=== PATIENT | female | born 1990 | race African-American/Black ===

== ENCOUNTER 2024-09-27 19:40 | Emergency (ER) | payer SELFPAY ==
[~2024-09-27] VITALS: Ht 162.6 cm; Wt 116.1 kg
[~2024-09-27 19:40] MED LIST: AZITHROMYCIN250 MG PO; DIPHENHYDRAMINE25 M2 PO; LORATADINE-D 21 EAC1 PO; NASACORT16.9 ML
[2024-09-27 21:14] VITALS: PULSE 72; RESP 18; TEMP 99.2
[2024-09-27] MEDS ORDERED: DOXYCYCLINE HY100 MG PO (21:27)
[2024-09-27] MEDS ORDERED: IBUPROFEN200 MG PO (21:27)
[2024-09-27 21:37] VITALS: BP 135/69; PULSE 72; RESP 18; TEMP 99.2; O2SAT 100
== END 2024-09-27 21:37 | disposition home or self-care (01) ==
LOC: FSED 19:44
DX: S80.212A Abrasion, left knee, initial encounter (principal); W01.0XXA Fall on same level from slipping, tripping and stumbling without subsequent striking against object, initial encounter; Y93.01 Activity, walking, marching and hiking; Y92.89 Other specified places as the place of occurrence of the external cause
CPT/HCPCS: 99282

== ENCOUNTER 2025-02-12 17:18 | Emergency (ER) | payer SELFPAY ==
[~2025-02-12] VITALS: Ht 162.6 cm; Wt 116.1 kg
[~2025-02-12 17:18] MED LIST changes: +DOXYCYCLINE HY100 MG PO; +IBUPROFEN200 MG PO
[2025-02-12 17:27] VITALS: PULSE 84; RESP 20; TEMP 98.1
[2025-02-12] MEDS ORDERED: TYLENOL325 MG PO (17:50)
[2025-02-12] MEDS ORDERED: TIZANIDINE HCL4 MG PO (17:50)
[2025-02-12] MEDS ORDERED: IBUPROFEN600 MG PO (17:50)
[2025-02-12] MEDS ORDERED: IBUPROFEN 200 MG TAB PO ONE (18:00)
[2025-02-12] MEDS ORDERED: ASPIRIN 325 MG TAB PO ONE (18:00)
[2025-02-12] MEDS: IBUPROFEN 600 MG TAB PO STA (18:27)
[2025-02-12] MEDS: ACETAMINOPHEN 325 MG TAB PO ONE (18:27)
[2025-02-12 18:56] VITALS: BP 134/79; PULSE 74; RESP 18; O2SAT 99
== END 2025-02-12 18:57 | disposition home or self-care (01) ==
LOC: FSED 17:23
DX: M54.50 Low back pain, unspecified (principal); M62.830 Muscle spasm of back; X50.0XXA Overexertion from strenuous movement or load, initial encounter
CPT/HCPCS: 99282

== ENCOUNTER 2025-07-18 09:53 | Emergency (ER) | payer SELFPAY ==
[~2025-07-18] VITALS: Ht 165.1 cm; Wt 11.1 kg
[~2025-07-18 09:53] MED LIST changes: +IBUPROFEN600 MG PO; +TIZANIDINE HCL4 MG PO; +TYLENOL325 MG PO
[2025-07-18 09:55] VITALS: PULSE 84; RESP 18; TEMP 98.9; O2SAT 97
[2025-07-18] MEDS ORDERED: AMOXICILLIN500 MG PO (10:54)
== END 2025-07-18 11:00 | disposition home or self-care (01) ==
LOC: FSED 09:59
DX: R05.9 Cough, unspecified (principal); J02.0 Streptococcal pharyngitis; Z11.52 Encounter for screening for COVID-19
CPT/HCPCS: 0223U; 83518; 87400; 99284